=== PATIENT | male | born 1960 | race Caucasian/White ===

== ENCOUNTER → 2018-05-09 09:05 | Outpatient (CLI) | payer OTHER ==
[2011-09-17 08:04] VITALS: BMI 39.6
== END | disposition home or self-care (01) ==
LOC: D.RAD 09:00
DX: M13.862 Other specified arthritis, left knee (principal)

== ENCOUNTER 2020-07-29 08:45 | Inpatient (IN) | payer OTHER ==
[~2020-07-29] VITALS: Ht 172.7 cm; Wt 129.1 kg
[2020-07-29 08:50] VITALS: Ht 172.7 cm; Wt 129.1 kg
[2020-07-29] MEDS ORDERED: HYDROCODON-ACE1 EA10 PO (08:54)
[2020-07-29] MEDS ORDERED: CYCLOBENZAPRINE10 MG PO (08:54)
[2020-07-29] MEDS ORDERED: ZYLOPRIM100 MG PO (08:55)
[2020-07-29] MEDS ORDERED: NEURONTIN 400400 MG PO (08:56)
[2020-07-29] MEDS ORDERED: XANAX XR3 MG PO (08:56)
[2020-07-29] MEDS ORDERED: REMERON30 MG PO ×2 (08:57→21:05)
[2020-07-29] MEDS ORDERED: NAPROSYN500 MG PO (08:57)
[2020-07-29] MEDS ORDERED: ROPINIROLE HCL1 MG PO (08:57)
[2020-07-29] MEDS ORDERED: COREG25 MG PO (08:58)
[2020-07-29] MEDS ORDERED: CYMBALTA60 MG PO (08:58)
[2020-07-29] MEDS ORDERED: COZAAR100 MG PO (08:58)
[2020-07-29 10:00] LABS: CALC OSMOLALITY 273 mosm/kg (275-300); CARBON DIOXIDE 27.9 mmol/L (21.0-32.0); CHLORIDE - SERUM 100 mmol/L (98-107); CREATININE - SERUM 0.8 mg/dL (0.6-1.3); GLUCOSE 94 mg/dL (74-106); POTASSIUM - SERUM 3.8 mmol/L (3.5-5.1); SODIUM 136 mmol/L (136-145); UREA NITROGEN 17 mg/dL (7-18); eGFR NON AFRICAN AMERICAN > 90 mL/min (90-120)
[2020-07-29 10:07] LABS: BASOPHILS 0.1 % (0-2); EOSINOPHILS 0.9 % (0-7); HEMATOCRIT 37.5 % (42.0-54.0); HEMOGLOBIN 12.5 g/dL (13.5-17.5); IMMATURE GRANULOCYTES 0.4 % (0-5); LYMPHOCYTES 8.6 % (15-50); MCH 29.2 pg (26.0-34.0); MCHC 33.3 g/dL (31.0-37.0); MCV 87.6 fL (80.0-100.0); MEAN PLATELET VOLUME 9.5 fL (7.4-10.4); MONOCYTES 6.5 % (2-11); NEUTROPHILS 83.5 % (40-80); RBC 4.28 10x6/uL (4.20-6.10); RDW 14.2 % (11.5-14.5); WBC 13.4 10x3/uL (4.8-10.8)
[2020-07-29 10:08] LABS: PLATELET COUNT 164 10x3/uL (130-400)
[2020-07-29 10:14] LABS: ALKALINE PHOSPHATASE 113 U/L (30-120); ALT (SGPT) 20 U/L (10-68); BILIRUBIN - TOTAL 0.77 mg/dL (0.2-1.3); PRO BNP 94 pg/mL (0-125); PROTEIN - SERUM 7.1 g/dL (6.4-8.2)
[2020-07-29 11:11] LABS: BILIRUBIN NEGATIVE (NEGATIVE); KETONE NEGATIVE (NEGATIVE); NITRITE NEGATIVE (NEGATIVE); UROBILINOGEN NORMAL (NORMAL)
[2020-07-29 14:27] LABS: APTT 39.5 SECONDS (22.8-39.4); PROTIME 13.2 SECONDS (11.6-15.0)
[2020-07-29 16:05] VITALS: BP 122/51
[2020-07-29 17:30] VITALS: BP 140/53
--- NOTE | 2020-07-29 20:00 | NUR ---
RECEIVED, PATIENT TO ROOM 2135 VIA W/C. PATIENT IS AAOX4, UP WITH CANE. NO S/S OF DISTRESS OBSERVED, RR EVEN AND UNLABORED ON ROOM AIR. PIV TO RT AC, SL. PATIENT DENIES NEEDS AT THIS TIME. CL IN REACH, BED LOCKED AND LOWERED. COVID19 PRECAUTIONS INITIATED. WILL CTM.
[2020-07-30] VITALS: BP 133/53
[2020-07-30 04:00] VITALS: BP 129/68
[2020-07-30 06:59] LABS: BASOPHILS 0.1 % (0-2); EOSINOPHILS 0.3 % (0-7); HEMATOCRIT 34.9 % (42.0-54.0); HEMOGLOBIN 11.4 g/dL (13.5-17.5); IMMATURE GRANULOCYTES 0.5 % (0-5); LYMPHOCYTES 10.7 % (15-50); MCH 28.6 pg (26.0-34.0); MCHC 32.7 g/dL (31.0-37.0); MCV 87.7 fL (80.0-100.0); MEAN PLATELET VOLUME 9.5 fL (7.4-10.4); MONOCYTES 9.3 % (2-11); NEUTROPHILS 79.1 % (40-80); PLATELET COUNT 149 10x3/uL (130-400); RBC 3.98 10x6/uL (4.20-6.10); RDW 14.4 % (11.5-14.5); WBC 12.8 10x3/uL (4.8-10.8)
--- NOTE | 2020-07-30 07:20 | NUR ---
RECIEVE REPORT. RESTING IN BED WITH EYES CLOSED. NO SIGNS OF DISTRESS. CONTINUE PLAN OF CARE AND SAFEY PRECAUTIONS.
[2020-07-30 07:32] LABS: CALC OSMOLALITY 270 mosm/kg (275-300); CARBON DIOXIDE 26.4 mmol/L (21.0-32.0); CHLORIDE - SERUM 101 mmol/L (98-107); CREATININE - SERUM 0.7 mg/dL (0.6-1.3); GLUCOSE 105 mg/dL (74-106); MAGNESIUM - SERUM 1.7 mg/dL (1.8-2.4); PHOSPHOROUS 3.7 mg/dL (2.5-4.9); POTASSIUM - SERUM 3.4 mmol/L (3.5-5.1); PRO BNP 184 pg/mL (0-125); SODIUM 136 mmol/L (136-145); THYROID STIMULATING HORMONE 0.42 uIU/mL (0.36-3.74); eGFR NON AFRICAN AMERICAN > 90 mL/min (90-120)
[2020-07-30 07:33] LABS: UREA NITROGEN 11 mg/dL (7-18)
[2020-07-30 07:50] VITALS: BP 120/71
[2020-07-30 11:07] VITALS: BP 119/46
[2020-07-30 16:00] VITALS: BP 116/68
--- NOTE | 2020-07-30 20:00 | NUR ---
REPORT RECEIVED, WILL CONT POC. PT UP IN BED A&O, WATCHING TV. NO S/S OF DISTRESS OBSERVED. RR EVEN AND UNLABORED ON RA. PT REQUESTS SANDWICH AND COKE, BROUGHT TO BEDSIDE. PT DENIES OTHER NEEDS AT THIS TIME. CALL LIGHT IN REACH, BED LOCKED, AND LOWERED. ASSESSMENT COMPLETED AT THIS TIME. WILL CONT TO MONITOR.
[2020-07-31] VITALS: BP 104/65
--- NOTE | 2020-07-31 01:09 | NUR ---
PATIENT ARIVED FROM MED 2. ALERT AND ORENTED ABLE TO VOICE NEEDS AND WANTS TO STAFF. WALKING ABOUT ROOM WITH CANE. IV 22 TO RIGHT FOREARM WITH NS AT KVO. RED RASS TO RIGHT LOWER LEG. WATER AND CALL LIGHT IN REACH. ON ROOM AIR. WILL REMAIN WITH POC.
[2020-07-31 04:00] VITALS: BP 117/74
[2020-07-31 05:14] LABS: HEMATOCRIT 32.8 % (42.0-54.0); HEMOGLOBIN 11.2 g/dL (13.5-17.5); MCH 29.4 pg (26.0-34.0); MCHC 34.1 g/dL (31.0-37.0); MCV 86.1 fL (80.0-100.0); MEAN PLATELET VOLUME 8.8 fL (7.4-10.4); NEUTROPHILS 86.8 % (40-80); RBC 3.81 10x6/uL (4.20-6.10); RDW 13.9 % (11.5-14.5); WBC 14.3 10x3/uL (4.8-10.8)
[2020-07-31 05:35] LABS: CALCIUM 9.2 mg/dL (8.5-10.1); CARBON DIOXIDE 26.7 mmol/L (21.0-32.0); CHLORIDE - SERUM 104 mmol/L (98-107); CREATININE - SERUM 0.8 mg/dL (0.6-1.3); MAGNESIUM - SERUM 2.1 mg/dL (1.8-2.4); POTASSIUM - SERUM 3.6 mmol/L (3.5-5.1); SODIUM 139 mmol/L (136-145); eGFR NON AFRICAN AMERICAN > 90 mL/min (90-120)
[2020-07-31 05:42] LABS: CALC OSMOLALITY 282 mosm/kg (275-300); GLUCOSE 163 mg/dL (74-106); PHOSPHOROUS 2.7 mg/dL (2.5-4.9); UREA NITROGEN 16 mg/dL (7-18)
[2020-07-31 05:45] LABS: PLATELET COUNT 181 10x3/uL (130-400)
--- NOTE | 2020-07-31 07:30 | NUR ---
PT IS RESTING IN BED WITH EYES OPEN. RESPIRATIONS ARE EVEN AND UNLABORED. PT IS AAOX 4 AND ANSWERS ALL QUESTIONS APPROPRIATLEY. PT DENIES PRESENCE OF N/V/DYSPNEA/DIZZINESS/SOB AT THIS TIME. REDNESS/TENDERNESS NOTED TO RLE. PT REPORTS A RECENT ABLASION DONE OUT OF HOSPITAL PRIOR TO ADMISSION. PT STATES ONLY PAIN TO TOUCH. BLE PEDAL PULSES ARE PALP. BED IS IN THE LOWEST POSITION. CALL LIGHT AND BEDSIDE TABLE ARE WITHIN REACH. SIDE RAILS X 2 . PT DENIES FURHER NEEDS IWLL CONT TO MOMNITOR.
[2020-07-31 10:22] VITALS: BP 100/56
[2020-07-31 13:46] VITALS: BP 110/68
[2020-07-31 18:07] VITALS: BP 146/83
--- NOTE | 2020-07-31 19:30 | NUR ---
PT SITTING UP IN BED WITHOUT DISTRESS, AOX4. IV LEFT FA INFUSING NS @ KVO. ON ROOM AIR. RIGHT LEG WRAPPED IN UNNA DRESSING. REQUESTING PAIN MEDS AT 2100 WITH HS MEDS. WILL GIVE ORDERED. DENIES OTHER NEEDS AT THIS TIME. CL IN REACH, WILL CTM
[2020-07-31 20:00] VITALS: BP 126/76
--- NOTE | 2020-07-31 21:00 | NUR ---
PT GIVEN NORCO FOR PAIN 05/07. HS MEDS GIVEN WITHOUT DIFFICULTY. DENIES OTHER NEEDS, WILL CTM
--- NOTE | 2020-07-31 23:00 | NUR ---
PT GIVEN FLEXERIL FOR PAIN IN BACK. WILL CTM
--- NOTE | 2020-08-01 00:10 | NUR ---
PT GIVEN XANAX FOR ANXIETY AND TO HELP HIM SLEEP. DENIES OTHER NEEDS
--- NOTE | 2020-08-01 01:45 | NUR ---
PT GIVEN NORCO FOR PAIN 6/10 IN BACK AND RIGHT LEG. WILL CTM
[2020-08-01 04:00] VITALS: BP 102/54
--- NOTE | 2020-08-01 05:15 | NUR ---
PT LYING IN BED RESTING WITHOUT DISTRESS, WILL CTM
[2020-08-01 07:12] LABS: CALC OSMOLALITY 286 mosm/kg (275-300); CALCIUM 9.1 mg/dL (8.5-10.1); CARBON DIOXIDE 24.7 mmol/L (21.0-32.0); CHLORIDE - SERUM 108 mmol/L (98-107); CREATININE - SERUM 0.7 mg/dL (0.6-1.3); GLUCOSE 137 mg/dL (74-106); MAGNESIUM - SERUM 2.2 mg/dL (1.8-2.4); PHOSPHOROUS 2.5 mg/dL (2.5-4.9); POTASSIUM - SERUM 3.8 mmol/L (3.5-5.1); SODIUM 142 mmol/L (136-145); UREA NITROGEN 17 mg/dL (7-18); eGFR NON AFRICAN AMERICAN > 90 mL/min (90-120)
[2020-08-01 07:56] LABS: BASOPHILS 0.1 % (0-2); EOSINOPHILS 0 % (0-7); HEMATOCRIT 39.2 % (42.0-54.0); IMMATURE GRANULOCYTES 0.3 % (0-5); MCH 29.1 pg (26.0-34.0); MCHC 33.2 g/dL (31.0-37.0); MCV 87.9 fL (80.0-100.0); MEAN PLATELET VOLUME 9.9 fL (7.4-10.4); MONOCYTES 7.6 % (2-11); PLATELET COUNT 183 10x3/uL (130-400); RBC 4.46 10x6/uL (4.20-6.10); RDW 14.2 % (11.5-14.5); WBC 11.8 10x3/uL (4.8-10.8)
--- NOTE | 2020-08-01 08:47 | EC ---
PATIENT:NICHOLE CABA DATE OF SERVICE: 07/29/20 SEX: M MEDICAL RECORD: [id number] DATE OF : 58 LOCATION:[facility] AGE OF PATIENT: 60 ADMISSION DATE: 07/29/20 REFERRING PHYSICIAN: INTERPRETING PHYSICIAN: VIC THOMPSON MD ECHOCARDIOGRAM REPORT ECHO CHARGES 4 ECHO COMPLETE Date: 07/30/20 CLINICAL DIAGNOSIS: PE ECHOCARDIOGRAPHIC MEASUREMENTS (adult normal given) AC root (d.<3.7cm) 2.4 cm LV Septum d (<1.2 cm> 1.1 cm Valve Excursion 1.4 cm LV Septum (systole) 1.4 cm Left Atria (s.<4.0cm> 4.1 cm LVPW d(<1.2cm) 1.3 cm RV (d.<2.3cm) 3.9 cm LVPW (sytole) 1.4 cm LV diastole(<5.6CM) 4.8 cm MV E-F(>70mm/sec) cm LV systole 4.1 cm LVOT Diameter 2.2 cm MV exc.(>10mm) cm Est.ejection fraction (50-75%) % DOPPLER: LVIT cm/sec A 99 cm/sec E 104 cm/sec LA cm/sec RVSP 15.7 mmHg LVOT 134 cm/sec AOP1/2T m/s Asc. Ao 173 cm/sec RVOT 86 cm/sec RA cm/sec PA 133 cm/sec AV Gradient Peak 12.0 mmHg AV Mean 6.6 mmHg AV Area 2.8 cm MV Gradient Peak 5.7 mmHg MV Mean 3.0 mmHg MV Area cm COMMENTS: Business Office Manager: Chris DUARTE Dairy Cattle Farmer: 3 Dr. Spangler TAPE# PACS Pericardial Effusion N DATE OF SERVICE: Adequate 2D, color flow imaging, spectral Doppler, and M-Mode. Borderline LVH. LV internal dimension is normal. Wall motion is normal. EF is greater than or equal to 55%. Aortic valve is sclerotic. No evidence of stenosis by Doppler interrogation. Left atrium is minimally dilated at 4.1 cm. Mitral valve shows no prolapse. Trace MR. Right-sided chambers are grossly normal. Trace TR. ECHOCARDIOGRAM REPORT [id number] NICHOLE CABA TRANSINT:[id number] Voice Confirmation ID: [id number] DOCUMENT ID: [id number] VIC THOMPSON MD at 0847 CC: [id number] DICTATION DATE: 07/31/20817 CATTLE FARMER: 07/31/20 0835 ADM IN [place] [id number] [place] [id number]
--- NOTE | 2020-08-01 09:00 | NUR ---
ALERT AND ORIENTED X4 DRESSING INTACT TO LLE WITH PEDAL PULSES NOTED. RESP EVEN AND UNLABORED W/O DYSPNEA. AMBULATES W/O ASSSIT. ENCOURAGED TO USE CALL LIGHT FOR ASSSIT.
[2020-08-01 09:35] VITALS: BP 120/82
[2020-08-01 09:52] VITALS: BP 118/82
[2020-08-01] MEDS ORDERED: ALBUTEROL2.5 MG/3 M INH (11:05)
[2020-08-01] MEDS ORDERED: PERFOROMIS20 MCG/21 UPD (11:05)
[2020-08-01] MEDS ORDERED: FLORAJEN3 CAPS460 MG PO (11:07)
[2020-08-01] MEDS ORDERED: MUCINEX600 MG PO (11:07)
[2020-08-01] MEDS ORDERED: TESSALON PERLE100 MG PO (11:07)
[2020-08-01] MEDS ORDERED: ZINC-220220 MG PO (11:07)
[2020-08-01] MEDS ORDERED: KEFLEX250 MG PO (11:15)
[2020-08-01] MEDS ORDERED: ELIQUIS5 MG PO (11:20)
[2020-08-01 11:26] VITALS: BP 118/84
[2020-08-01 13:23] VITALS: BP 118/84
--- NOTE | 2020-08-01 13:27 | MORECARE ---
CASE MANAGEMENT DISCHARGE SUMMARY PATIENT: NICHOLE CABA UNIT: [id number] ADM DATE: 07/29/20 AGE: 60 : 58 SEX: M ROOM/BED: D.2238 AUTHOR: SUSY KAMINSKI PHYSICIAN: REFERRING PHYSICIAN: STEVEN MORFIN MD DATE OF SERVICE: 08/01/20 Discharge Plan Patient Name: NICHOLE CABA Facility: [facility]:[place] : 1960 Planned Disposition: Anticipated Discharge Date: Discharge Date: Expected LOS: Initial Reviewer: [id number] Initial Review Date: 07/29/2020 Generated: 08/01/20 2:26 pm Patient Name: NICHOLE CABA Page [phone] at 1327 All edits/amendments must be made on the electronic document DICTATION DATE: 08/01/20 1327 FLEXOGRAPHIC PRESS PLATE SETTER: YUNIEL 08/01/20 1327 RPT#: [id number] DC DATE: STATUS: ADM IN [facility] [address] [place] [address] END OF REPORT
--- NOTE | 2020-08-01 13:34 | MORECARE ---
CASE MANAGEMENT DISCHARGE SUMMARY PATIENT: NICHOLE CABA UNIT: [id number] ADM DATE: 07/29/20 AGE: 60 : 58 SEX: M ROOM/BED: D.2238 AUTHOR: SUSY KAMINSKI PHYSICIAN: REFERRING PHYSICIAN: STEVEN MORFIN MD DATE OF SERVICE: 08/01/20 Discharge Plan Patient Name: NICHOLE CABA Facility: [facility]:[place] : 1960 Planned Disposition: Anticipated Discharge Date: Discharge Date: Expected LOS: Initial Reviewer: [email or web address] Initial Review Date: 07/29/2020 Generated: 08/01/20 2:34 pm Comments DCP- Discharge Planning Updated by [email or web address]: Francisca Ramirez on 08/01/20 12:[address] Patient Name: NICHOLE CABA Admission Status: ER Accout number: [id number] Admission Date: 07-29-2020 : 1960 Admission Diagnosis:SHORTNESS OF BREATH Attending: ALANIS MORFIN Current LOS: 3 Anticipated DC Date: Planned Disposition: Primary Insurance: [employer] [facility] Discharge Planning Comments: CM met with patient at bedside after explaining CM role and obtaining verbal consent. CM discussed availability / needs of home health, REHAB and medical equipment. [facility] SIGNED FOR [facility], AND [facility] FOR DME. FAXED REFERRALS TO BOTH PLACES. PATIENT USES CANE AT HOME. LIVES WITH . HE IS READY TO DC TODAY. DOES NOT NEED OXYGEN PER WALK TEST RESULTS. CM TO FOLLOW AND ASSIST NEEDED. Forestry Hunter: Francisca Ramirez External Providers External Provider: [facility] Next Contact Date: Service Request Date: Service Type: Resolution: Reviewer: Comments: External Provider: [facility] Next Contact Date: Service Request Date: Service Type: Resolution: Reviewer: Comments: Coverage Notice Reviewer: [id number] - Francisca Ramirez Notice Issued Date-Time: 08/01/2020 13:31 Notice Type: Patient Choice Letter Notice Delivered To: Relationship to Patient: Puppy Trainer Name: Delivery Method: - Fanta Days: Prior Verbal Notification: Recipient Understood Notice: Recipient Signature: Med Rec Note Co-signed by Attending: Coverage Notice Comment: DME [facility] Last DP export: 08/01/20 12:27 pm Patient Name: NICHOLE CABA Page [phone] at 1334 All edits/amendments must be made on the electronic document DICTATION DATE: 08/01/20 1334 RURAL CARRIER: YUNIEL 08/01/20 1334 RPT#: [id number] DC DATE: STATUS: ADM IN [facility] [address] [place] [address] END OF REPORT
--- NOTE | 2020-08-01 13:50 | NUR ---
IV DISCONTINUED AND VERBALIZED UNDERSTANDING OF DISCHARGE INSTRUCTIONS. STABLE AT TIME OF DISCHARGE UNDER CARE OF FAMILY
--- NOTE | 2020-08-05 16:06 | MORECARE ---
CASE MANAGEMENT DISCHARGE SUMMARY PATIENT: NICHOLE CABA UNIT: [id number] ADM DATE: 07/29/20 AGE: 60 : 58 SEX: M ROOM/BED: D.2238 AUTHOR: SUSY KAMINSKI PHYSICIAN: REFERRING PHYSICIAN: STEVEN MORFIN MD DATE OF SERVICE: 08/05/20 Discharge Plan Patient Name: NICHOLE CABA Facility: [facility]:[place] : 1960 Planned Disposition: Anticipated Discharge Date: Discharge Date: 08/01/2020 Expected LOS: Initial Reviewer: [email or web address] Initial Review Date: 07/29/2020 Generated: 08/05/20 5:05 pm Comments DCP- Discharge Planning Updated by [email or web address]: Francisca Ramirez on 08/01/20 12:[address] Patient Name: NICHOLE CABA Admission Status: ER Accout number: [id number] Admission Date: 07-29-2020 : 1960 Admission Diagnosis:SHORTNESS OF BREATH Attending: ALANIS MORFIN Current LOS: 3 Anticipated DC Date: Planned Disposition: Primary Insurance: [employer] Discharge Planning Comments: CM met with patient at bedside after explaining CM role and obtaining verbal consent. CM discussed availability / needs of home health, REHAB and medical equipment. [facility]HEL[facility]E SIGNED FOR [facility], AND [facility] FOR DME. FAXED REFERRALS TO BOTH PLACES. PATIENT USES CANE AT HOME. LIVES WITH . HE IS READY TO DC TODAY. DOES NOT NEED OXYGEN PER WALK TEST RESULTS. CM TO FOLLOW AND ASSIST NEEDED. Track Moving Machine Operator: Francisca Ramirez Coverage Notice Reviewer: [email or web address] - Francisca Ramirez Notice Issued Date-Time: 08/01/2020 13:31 Notice Type: Patient Choice Letter Notice Delivered To: Relationship to Patient: Appraiser Personal Property Name: Delivery Method: - Fanta Days: Prior Verbal Notification: Recipient Understood Notice: Recipient Signature: Med Rec Note Co-signed by Attending: Coverage Notice Comment: DME [facility] Last DP export: 08/01/20 12:34 pm Patient Name: NICHOLE CABA Page [phone] at 1606 All edits/amendments must be made on the electronic document DICTATION DATE: 08/05/205 VP SECURITIES: YUNIEL 08/05/20 1605 RPT#: [id number] DC DATE:08/01/20 STATUS: DIS IN [facility] [address] [facility] [place] [address] END OF REPORT
== END 2020-08-01 13:50 | disposition home health service (06) | DRG 176 ==
LOC: D.ER 08:45 → D.EDHOLD 16:34 → D.M2 16:34 → D.MS 07-30 23:33
PROVIDERS: Family Medicine; ADMIT Emergency Medicine; ATTEND Emergency Medicine
DX: I26.99 Other pulmonary embolism without acute cor pulmonale (principal); Z68.41 Body mass index [BMI] 40.0-44.9, adult; E66.01 Morbid (severe) obesity due to excess calories; I10 Essential (primary) hypertension; E78.5 Hyperlipidemia, unspecified; G47.33 Obstructive sleep apnea (adult) (pediatric); F41.8 Other specified anxiety disorders; G89.29 Other chronic pain; M54.9 Dorsalgia, unspecified; G47.00 Insomnia, unspecified; G25.81 Restless legs syndrome

== ENCOUNTER 2021-04-12 17:30 | Emergency (ER) | payer OTHER ==
[~2021-04-12] VITALS: Ht 172.7 cm; Wt 108.6 kg
[~2021-04-12 17:30] MED LIST: ALBUTEROL2.5 MG/3 M INH; COREG25 MG PO; COZAAR100 MG PO; CYCLOBENZAPRINE10 MG PO; CYMBALTA60 MG PO; ELIQUIS5 MG PO; FLORAJEN3 CAPS460 MG PO; HYDROCODON-ACE1 EA10 PO; KEFLEX250 MG PO; MUCINEX600 MG PO; NAPROSYN500 MG PO; NEURONTIN 400400 MG PO; PERFOROMIS20 MCG/21 UPD; REMERON30 MG PO; ROPINIROLE HCL1 MG PO; TESSALON PERLE100 MG PO; XANAX XR3 MG PO; ZINC-220220 MG PO; ZYLOPRIM100 MG PO
[2021-04-12 17:34] VITALS: Ht 172.7 cm; Wt 108.6 kg
[2021-04-12 18:18] LABS: BASOPHILS 0.1 % (0-2); EOSINOPHILS 1.4 % (0-7); HEMATOCRIT 40.3 % (42.0-54.0); HEMOGLOBIN 13.5 g/dL (13.5-17.5); IMMATURE GRANULOCYTES 0.2 % (0-5); LYMPHOCYTES 20.1 % (15-50); MCH 28.5 pg (26.0-34.0); MCHC 33.5 g/dL (31.0-37.0); MEAN PLATELET VOLUME 9.8 fL (7.4-10.4); MONOCYTES 9.7 % (2-11); NEUTROPHIL ABS# 6.81 10x3/uL (1.78-5.38); NEUTROPHILS 68.5 % (40-80); PLATELET COUNT 265 10x3/uL (130-400); RBC 4.74 10x6/uL (4.20-6.10); RDW 13.6 % (11.5-14.5)
[2021-04-12 18:25] LABS: APTT 30.8 SECONDS (22.8-39.4); INR 1.11 (0.85-1.17); PROTIME 13.2 SECONDS (11.6-15.0)
[2021-04-12 18:34] LABS: CALC OSMOLALITY 284 mosm/kg (275-300); CALCIUM 10.3 mg/dL (8.5-10.1); CARBON DIOXIDE 29.1 mmol/L (21.0-32.0); CHLORIDE - SERUM 102 mmol/L (98-107); CREATININE - SERUM 0.8 mg/dL (0.6-1.3); GLUCOSE 119 mg/dL (74-106); POTASSIUM - SERUM 4.1 mmol/L (3.5-5.1); SODIUM 142 mmol/L (136-145); UREA NITROGEN 16 mg/dL (7-18); eGFR NON AFRICAN AMERICAN > 90 mL/min (90-120)
[2021-04-12 18:36] VITALS: BP 148/82
[2021-04-12 18:50] LABS: ALBUMIN 4.2 g/dL (3.4-5.0); ALKALINE PHOSPHATASE 120 U/L (30-120); ALT (SGPT) 18 U/L (10-68); CKMB 1.2 U/L (0.0-3.6); CREATINE KINASE 44 UL (21-232); PROTEIN - SERUM 8.3 g/dL (6.4-8.2); THYROID STIMULATING HORMONE 1.15 uIU/mL (0.36-3.74)
[2021-04-12 18:58] LABS: TROPONIN-I < 0.017 ng/mL (0.000-0.060)
== END 2021-04-12 19:13 | disposition home or self-care (01) ==
LOC: D.ER 17:30
PROVIDERS: Family Medicine
DX: M71.22 Synovial cyst of popliteal space [Baker], left knee (principal); I10 Essential (primary) hypertension; E78.5 Hyperlipidemia, unspecified; G25.81 Restless legs syndrome

== ENCOUNTER 2021-04-16 12:04 | Emergency (ER) | payer OTHER ==
[~2021-04-16] VITALS: Ht 172.7 cm; Wt 109.1 kg
[2021-04-16 12:30] VITALS: Ht 172.7 cm; Wt 109.1 kg
[2021-04-16 12:47] LABS: BASOPHILS 0.4 % (0-2); EOSINOPHILS 2.7 % (0-7); HEMATOCRIT 38.7 % (42.0-54.0); LYMPHOCYTES 22.4 % (15-50); MCH 28.2 pg (26.0-34.0); MCHC 33.5 g/dL (31.0-37.0); MCV 84.1 fL (80.0-100.0); MEAN PLATELET VOLUME 7.8 fL (7.4-10.4); MONOCYTES 7.6 % (2-11); NEUTROPHILS 66.9 % (40-80); PLATELET COUNT 272 10x3/uL (130-400); RBC 4.61 10x6/uL (4.20-6.10); RDW 13.7 % (11.5-14.5); WBC 8.7 10x3/uL (4.8-10.8)
[2021-04-16 12:59] LABS: CALC OSMOLALITY 279 mosm/kg (275-300); CARBON DIOXIDE 26.7 mmol/L (21.0-32.0); CHLORIDE - SERUM 102 mmol/L (98-107); CREATININE - SERUM 0.9 mg/dL (0.6-1.3); GLUCOSE 115 mg/dL (74-106); SODIUM 140 mmol/L (136-145); UREA NITROGEN 13 mg/dL (7-18); eGFR NON AFRICAN AMERICAN > 90 mL/min (90-120)
[2021-04-16 13:05] LABS: INR 1.13 (0.85-1.17); PROTIME 13.4 SECONDS (11.6-15.0)
[2021-04-16 13:16] LABS: ALBUMIN 4.4 g/dL (3.4-5.0); ALKALINE PHOSPHATASE 117 U/L (30-120); ALT (SGPT) 19 U/L (10-68); BILIRUBIN - TOTAL 0.69 mg/dL (0.2-1.3); CKMB 1.4 U/L (0.0-3.6); CREATINE KINASE 57 UL (21-232); PROTEIN - SERUM 8.4 g/dL (6.4-8.2); THYROID STIMULATING HORMONE 0.57 uIU/mL (0.36-3.74); TROPONIN-I < 0.017 ng/mL (0.000-0.060)
[2021-04-16] MEDS ORDERED: BAYER CHEWABLE81 MG PO (13:41)
[2021-04-16] MEDS ORDERED: LOPID600 MG PO (13:46)
[2021-04-16 21:58] VITALS: BP 149/77
== END 2021-04-16 20:30 | disposition home or self-care (01) ==
LOC: D.ER 12:04
PROVIDERS: Emergency Medicine
DX: R20.2 Paresthesia of skin (principal); R41.0 Disorientation, unspecified; I10 Essential (primary) hypertension; E78.5 Hyperlipidemia, unspecified; G25.81 Restless legs syndrome; R47.81 Slurred speech